=== PATIENT | female | born 1980 | race Asian ===

== ENCOUNTER 2019-06-17 13:30 | Inpatient (IN) | payer SELFPAY ==
[2019-06-17] MEDS ORDERED: PROMETHAZINE 25 MG/ML VIAL IM PRN ×2 (13:49)
[2019-06-17] MEDS ORDERED: BUTORPHANOL 1 MG/ML INJ IV PRN (13:49)
[2019-06-17] MEDS ORDERED: Ringers Lactate 1,000 ML IV PRN (13:49)
[2019-06-17] MEDS ORDERED: METHYLERGONOVINE 0.2MG/ML AMP IM PRN (13:49)
[2019-06-17] MEDS ORDERED: Ringers Lactate 1,000 ML IV SCH (14:00)
[2019-06-17] MEDS ORDERED: OXYTOCIN/LR 20 UNIT/1,000 ML BAG IV SCH ×2 (14:00→20:00)
[2019-06-17 14:24] LABS: Urine Appearance CLEAR; Urine Bilirubin NEGATIVE (NEG); Urine Blood NEGATIVE (NEG); Urine Color YELLOW; Urine Glucose NEGATIVE (NEG); Urine Protein NEGATIVE (NEG); Urine Urobilinogen 0.2 mg/dL (0.2-1.0); Urine pH 7.5 (5.0-7.0)
[2019-06-17 14:27] LABS: Urine Microscopic Reflex NO UMIC
[2019-06-17 14:29] LABS: Basophils % 0.2 % (0-1.3); Lymphocytes % 10.3 % (15.3-44.8); MPV 8.6 fL (7.6-11.3); RBC Red Blood Cell Count 3.98 M/uL (3.86-4.86)
[2019-06-17 14:31] VITALS: BMI 26.2
[2019-06-17] MEDS ORDERED: FENTANYL CITR 100 MCG/2 ML IV ONE (17:16)
[2019-06-17] MEDS ORDERED: FENTANYL/BUPIVACAINE/NS/PF 200 MCG/100 ML BAG EP PRN (17:16)
[2019-06-17] MEDS ORDERED: BUPIVACAINE 0.25% PF 30 ML VIAL IV ONE (17:17)
[2019-06-17] MEDS ORDERED: LIDOCAINE 1% MPF 30 ML VIAL ONE (17:58)
[2019-06-17] MEDS ORDERED: LIDOCAINE 1% MPF 2 ML AMPULE ONE (17:58)
[2019-06-17] MEDS ORDERED: CEFAZOLIN/SWI 1gm 1 GM/10 ML SYR ONE (18:54)
[2019-06-17] MEDS ORDERED: DOCUSATE NA/SENNA CONC 1 TAB PO PRN (19:11)
[2019-06-17] MEDS ORDERED: DIPHENHYDRAMINE 25 MG TAB/CAP PO PRN (19:11)
[2019-06-17] MEDS ORDERED: BISACODYL 10 MG RECTAL SUPP RECT PRN (19:11)
[2019-06-17] MEDS ORDERED: ACETAMINOPHEN 500 MG TAB PO PRN (19:11)
[2019-06-17] MEDS ORDERED: Oxycodone HCl/Acetaminophen 1 TAB TAB PO PRN ×2 (19:11)
[2019-06-17] MEDS ORDERED: IBUPROFEN 200 MG TAB PO PRN (19:11)
--- NOTE | 2019-06-17 19:51 | PREOPHP ---
Date of Admission: 06/17/2019 Jon -[id number] 2, para 1, 39 weeks gestation, came in with her . She speaks no Kosovan, but he speaks very good Kosovan. The couple says that she has been kirill since last night every 5 minutes. Baby looks good on the monitor thus far. She is Rh positive, immune to Rubel la. Negative beta strep screen. She is now good 1.5 in the office, she was only about 1 and we had plan for Cytotec but the baby is at -2 station. Membranes are bulging with contraction. She is a good 60, possibly even 79% effaced. Was started on Pitocin to bring the baby down a little bit more and then if spontaneous rupture of membranes has not occurred, we will rupture membranes at that point to facilitate the labor anticipate delivery sometime later this evening. JIA/ALEJANDRO Voice ID: [id number]
[2019-06-17] MEDS ORDERED: CEFAZOLIN/NS 1gm 1 GM/50 ML BAG IVPB ONE (20:04)
--- NOTE | 2019-06-17 20:42 | PN ---
Patient is kirill regularly every 2 to 3 minutes, 2 cm 60% to 70% effaced, vertex, -1 station. Rupture of membranes, clear fluid. She will probably request IV analgesics and then at 3-4 cm epidur al anesthesia. JIA/ALEJANDRO Voice ID: [id number] Report ID: [id number]
[2019-06-17 21:11] LABS: RPR (Rapid Plasma Reagin) NON-REACT (NON-REACT)
--- NOTE | 2019-06-17 23:08 | PN ---
Patient has progressed from 3 to approximately 8.5 to 9, 90% effaced, 0 station, requesting epidural. Whether or not Dr. Brush has time to get here or not, we will see, but he has been called. JIA/ALEJANDRO Voice ID: [id number] Report ID: [id number]
[2019-06-17] MEDS ORDERED: METHYLERGONOVINE 0.2MG/ML AMP IM ONE (23:45)
[2019-06-17] MEDS ORDERED: OXYTOCIN/LR 0 UNIT/0 ML BAG IV ONE (23:45)
[2019-06-19 07:06] VITALS: BP 109/55; TEMP 97.6
[2019-06-19] MEDS ORDERED: MAGNESIUM HYDROXIDE 8% 30 ML PO ONE (07:56)
--- NOTE | 2019-06-20 02:11 | DS ---
Date of Discharge: 06/19/2019 A 39-year-old, 2, para 1, 39 weeks' gestation, came in in early labor. Received Stadol 1 mg IV, Phenergan 25 mg IM. At approximately 9 cm, got a spinal block from Dr. Brush with fentanyl. S econd stage of approximately 30 minutes. Spontaneous vaginal delivery of a 5 pounds, 14-ounce female , Apgars 9 and 9. Second-degree midline laceration repaired with 2-0 chromic. Coley delivery of t he placenta, which was inspected and noted to be intact and normal. Estimated blood loss 350 mL. Po stpartum; patient is afebrile ambulating, voiding. Lochia is normal. She is Rh positive, immune to Rubella. She has had a Tdap immunization. She has not had a bowel movement yet. We gave her Milk o f Magnesia this morning. She is only taking Motrin for analgesia. The patient had urinary retention . Had catheterization, which got 1200 mL. Second time, a Varner catheter was inserted and again got 1300 mL. We have been clamping the catheter to try to get her to void around the catheter, but this has not been very successful so for. We will send her home with a catheter. She will continue to cl amp and try to void around the catheter every few hours and then if everything is well, we will take it out tomorrow morning. I have given her Macrobid for the next 2 to 3 days for catheter coverage. Final Diagnoses: Term intrauterine . Spontaneous vaginal deliveries. Spinal block with fe ntanyl. Urinary retention. All immunizations given. JIA/ALEJANDRO Voice ID: [id number] Report ID: [id number]
--- NOTE | 2019-06-20 08:57 | DS ---
Date of Discharge: 06/19/2019 39-year-old, 2, para 1, 39 weeks, scheduled for Cytotec, came in labor. During the first st age of labor, she received 1 mg Stadol and 25 mg of Phenergan IM. Stadol IV. At 8 to 9 cm, she rece ived spinal block anesthesia by Dr. Brush, which gave good effect. Second stage of approximately h delmi an hour. Spontaneous vaginal delivery of a 5 pound, 14 ounce female, Apgars 9 and 9. Second-deg ree midline laceration repaired with 2-0 chromic under local anesthetic and the spinal which had not completely worn off. Schultze delivery of the placenta, which was inspected and noted to be intact a nd normal. 350 cc blood loss. Patient tolerated all procedures well. ; afebrile, ambulat ing. She could not void however, was catheterized initially 1200 cc, catheterized again and another 1200 to 1300 cc so Varner catheter was placed. We will keep the Varner catheter until this afternoon a nd the patient voided around the catheter after she has been clamped, will remove it then. Full post instructions given. She has already had her Tdap shot. Requests no analgesics. She is Rh pos itive, immune to rubella. Final Diagnoses: Term intrauterine . Vaginal delivery. Spinal block with fentanyl, urinar y retention. JIA/ALEJANDRO Voice ID: [id number] Report ID: [id number]
[2019-06-21 03:29] LABS: HBsAG Nonreactive (Nonreactive)
--- NOTE | 2019-06-30 12:13 | OP ---
Surgeon: Nikolay Fink MD A 39-year-old, 2, para 1, 39 weeks gestation, came in, in early labor. Stadol 1 mg IV, Phene rgan 25 mg IM x1. At 9 cm, patient requested and got spinal block anesthesia from Dr. Brush with f entanyl. Second stage of approximately 30 minutes. Spontaneous vaginal delivery of a 5-pound 14-oun ce female, Apgars 9 and 9. Second-degree midline lacerations repaired with 2-0 chromic plus local in filtration. Schultze delivery of the placenta, inspected and noted to be intact and normal. Estimat ed blood loss 350 mL. Patient tolerated all procedures well. Final Diagnoses: Term intrauterine . Spontaneous vaginal delivery. Spinal block with fent anyl. NBC/MODL Voice ID: [id number] Report ID: [id number]
== END 2019-06-19 08:40 | disposition home or self-care (01) | DRG 807 ==
LOC: L&D 13:30 → 2ND-WC 13:52
PROVIDERS: ADMIT Specialist; ATTEND Specialist
PROC: 10907ZC Drainage of Amniotic Fluid, Therapeutic from Products of Conception, Via Natural or Artificial Opening (ICD-10-PCS; principal; 2019-06-17)
PROC: 10E0XZZ Delivery of Products of Conception, External Approach (ICD-10-PCS; 2019-06-17)
PROC: 0KQM0ZZ Repair Perineum Muscle, Open Approach (ICD-10-PCS; 2019-06-17)
DX: O70.1 Second degree perineal laceration during delivery (principal); Z37.0 Single live birth; Z3A.39 39 weeks gestation of pregnancy; R33.9 Retention of urine, unspecified; O75.89 Other specified complications of labor and delivery
CPT/HCPCS: 36415; 81003; 85025; 86592; 86901; 87340; J0595; J0690; J2001; J2210; J2550; J2590; J3010; J7120